=== PATIENT | female | born 1960 | race Caucasian/White ===

== ENCOUNTER 2022-09-16 18:27 | Emergency (ER) | payer BC, SELFPAY ==
[2022-09-16 18:36] VITALS: BP 141/89; PULSE 95; RESP 16; TEMP 36.8; O2SAT 98
--- NOTE | 2022-09-16 19:06 | ED.SKABFB ---
HPI - Skin/Abscess/Foreign Bdy General Chief complaint: Skin/Abscess/Foreign Body Stated complaint: Swollen Pointer Finger Lt Hand Time Seen by Provider: 09/16/22 18:51 Source: patient and RN notes reviewed Mode of arrival: ambulatory Limitations: no limitations History of Present Illness HPI narrative: Patient presents today complaining of swelling and pain to her right 2nd finger times 3-4 days. Believe she has an abscess that needs to be lanced. Currently rates her pain 9/10 has tried no [id number] interventions prior to arrival. Denies history of staph infections or abscesses in the past. Related Data Allergies Allergy/AdvReac Type Severity Reaction Status Date / Time Sulfa (Sulfonamide AdvReac Mild hives Verified 09/16/22 18:28 Antibiotics) Review of Systems Review of Systems: CONSTITUTIONAL: Denies body aches, fever, chills, or sweats. EYES: Denies visual changes, redness, or discharge. ENT: Denies rhinorrhea, congestion, sore throat, or otalgia. CARDIOVASCULAR: Denies chest pain, palpitations, or edema. RESPIRATORY: Denies cough or dyspnea. GASTROINTESTINAL: Denies abdominal pain, nausea, vomiting, or diarrhea. GENITOURINARY: Denies dysuria or hematuria. SKIN: Denies rash, itching, or wounds. MUSCULOSKELETAL: Denies back pain, or myalgia.+ pain and swelling to right 2nd finger NEUROLOGIC: Denies headache, numbness, tingling, or weakness. PSYCH: Denies depression or anxiety. FOR[facility]LY [facility] Past Medical History Medical History (Updated 09/16/22 @ 19:12 by Claudine Callahan, MET[employer] LATHER, ) Mixed hyperlipidemia Uterine fibroid Surgical History Surgical History H/O hysterectomy with oophorectomy Family History Family History Mother Patient's mother is in good health Father Patient's father is in good health Social History Social History Smoking status: Former smoker Second hand tobacco smoke exposure: No Smoking end date: 01/01/82 Alcohol intake: current Drinks per week: 2 Substance use: never Substance use type: does not use Living arrangements: alone Occupation/Education: occupation Gender identity (if verbalized by the patient): Female Comments At time of signature, I have reviewed and agree with nursing past medical, surgical, social and family history unless otherwise noted. Please see nursing chart for further information. There is no relevant family history pertinent to the presenting complaint Exam Narrative: GENERAL: Well-appearing, well-nourished, and in no acute distress. HEAD: Normocephalic, atraumatic. EYES: EOMI. No redness or drainage. Conjunctivae normal. ENT: Mucous membranes pink and moist. NECK: Normal AROM. CHEST: No respiratory distress. EXTREMITIES: Moderate swelling to the right 2nd finger distal phalanx with collection of purulent drainage to the base of the nail, consistent with paronychia. Tender to palpation. SKIN: Warm, dry, no rash. Capillary refill normal. Normal skin turgor. NEURO: No focal deficits. Alert and oriented x3. Gait steady. PSYCH: Normal affect. No signs of depression or anxiety. Course Course Level of Care: Express Care Visit Vital Signs Vital signs: Vital Signs Temperature 98.2 F 09/16/22 18:36 Pulse Rate 95 09/16/22 18:36 Respiratory Rate 16 09/16/22 18:36 Blood Pressure 141/89 H 09/16/22 18:36 Pulse Oximetry 98 09/16/22 18:36 Oxygen Delivery Room Air 09/16/22 18:36 Temperature 98.2 F 09/16/22 18:36 Pulse Rate 95 09/16/22 18:36 Respiratory Rate 16 09/16/22 18:36 Blood Pressure 141/89 H 09/16/22 18:36 Pulse Oximetry 98 09/16/22 18:36 Oxygen Delivery Room Air 09/16/22 18:36 Reviewed. Pt has been instructed to follow up with her PCP regarding her elevated blood pressure today. Pro
== END 2022-09-16 19:13 | disposition home or self-care (01) ==
PROVIDERS: Emergency Provider Nurse Practitioner
DX: L03.011 Cellulitis of right finger (principal); Z87.891 Personal history of nicotine dependence; E78.2 Mixed hyperlipidemia
CPT/HCPCS: 10060; 99213; G0463